=== PATIENT | male | born 1995 | race Two or more races ===

== ENCOUNTER 2022-12-29 09:57 | Emergency (ER) | payer OTHER ==
[2022-12-29 10:03] VITALS: BP 132/84; PULSE 64; RESP 18; TEMP 98.5; BMI 26.8
[2022-12-29] MEDS ORDERED: MECLIZINE HCL 25 MG TABLET (FP) PO ONE (11:32)
[2022-12-29] MEDS ORDERED: SODIUM CHLORIDE 0.9% 500 ML INFUS.BAG IV ONE (11:32)
[2022-12-29] MEDS ORDERED: MECLIZINE HCL 25 MG TABLET (FP) ONE (11:54)
[2022-12-29 13:14] LABS: BASO % 0.7 % (0-2.0); EOS % 9.2 % (0-4.5); HEMATOCRIT 46.1 % (35.4-49); HEMOGLOBIN 16.1 GM/dL (11.7-16.9); LYMPH % 24.2 % (8-40); MEAN CELL VOLUME 85.8 fl (80-96); MEAN PLT VOLUME 8.1 fl (7.5-11.1); MONO % 6.3 % (3.8-10.2); NEUT % 59.6 % (42.8-82.8); PLATELET COUNT 244 10^3/uL (134-434); RBC 5.38 M/mm3 (4.00-5.60); RDW 13.4 % (11.9-15.9); WHITE BLOOD COUNT 10.6 K/mm3 (4.0-10.0)
[2022-12-29 13:22] LABS: POTASSIUM 4.3 mmol/L (3.5-5.1)
[2022-12-29 13:25] LABS: ALBUMIN 3.9 g/dl (3.4-5.0); BLOOD UREA NITROGEN 11.5 mg/dL (7-18); CALCIUM 8.9 mg/dL (8.5-10.1); MAGNESIUM 2.4 mg/dL (1.8-2.4)
[2022-12-29 13:28] LABS: PHOSPHOROUS 3.5 mg/dL (2.5-4.9)
[2022-12-29 13:30] LABS: BILIRUBIN,TOTAL 0.7 mg/dL (0.2-1); TOT PROT 7.3 g/dl (6.4-8.2)
== END 2022-12-29 13:47 | disposition home or self-care (01) ==
LOC: JER 09:57
DX: R42 Dizziness and giddiness (principal)
CPT/HCPCS: 36415; 70450-TC; 80053; 83735; 84100; 85025; 93005; 93010; 99285-25